=== PATIENT | male | born 1970 | race Caucasian/White ===

== ENCOUNTER → 2021-11-29 15:18 | Outpatient (CLI) | payer OTHER, SELFPAY ==
--- NOTE | ~2021-11-29 | MR_ITS ---
EXAMINATION: MR shoulder LT wo con DATE: 11/29/2021 16:22 INDICATION: Left shoulder pain TECHNIQUE: Magnetic resonance imaging (MRI) of the left shoulder was performed without intravenous co ntrast. Sequences included axial PD-weighted FS FSE, coronal oblique PD-weighted FS FSE, coronal obli que T2-weighted FS FSE, sagittal PD-weighted FS FSE, and sagittal T1-weighted SE. COMPARISON: None. FINDINGS: Coracoacromial arch: The acromion undersurface is curved in morphology (type II). The coracoacromial ligament is normal. M ild acromioclavicular osteoarthritis. Rotator cuff: The supraspinatus, infraspinatus and teres minor tendons are normal. Mild subscapularis tendinopathy with small longitudinal split tear extending approximately 2 cm medially from the lesser tuberosity f ootplate along the otherwise intact appearing tendon fibers. Normal rotator cuff muscle bulk and sign al. Biceps tendon, glenoid labrum and glenohumeral cartilage: Long head of the biceps tendon is normal. Normal variant [place] complex with absent anterosuperior la maykel with thickened cordlike middle glenohumeral ligament. Very small tear at the 11:30-12:00 positio n of the superior glenoid labrum. Glenohumeral cartilage is normal. Fluid: Physiologic amount of fluid in the glenohumeral joint and biceps tendon sheath. No loose osteochondr al bodies. No abnormal fluid signal in the subacromial/subdeltoid bursa to suggest bursitis. Bones/other: Normal marrow signal with no fracture or abnormal marrow replacing process. There is thickened soft t issue replacing the normal fat signal at the rotator cuff interval as well as thickening of the joint capsule at the axillary recess, both findings which can be seen with adhesive capsulitis which is a clinical diagnosis. IMPRESSION: 1. Thickening of the capsule at the axillary recess and thickened soft tissue at the rotator cuff int erval, both findings which can be seen in the setting of adhesive capsulitis which is a clinical diag nosis. 2. Mild subscapularis tendinopathy with longitudinal split tear along the cephalad third of the tendo n. 3. Very small SLAP tear at the superior glenoid labrum. 4. Mild acromioclavicular osteoarthritis. Reviewed, dictated and finalized at location A. IMPRESSION: 1. Thickening of the capsule at the axillary recess and thickened soft tissue a t the rotator cuff interval, both findings which can be seen in the setting of adhesive capsulitis which is a clinical diagnosis. 2. Mild subscapularis tendinopathy with longitudinal split tear along the cepha lad third of the tendon. 3. Very small SLAP tear at the superior glenoid labrum. 4. Mild acromioclavicular osteoarthritis.
== END ==
PROVIDERS: PCP Physician Assistant; Visit Provider Physician Assistant
DX: M19.012 Primary osteoarthritis, left shoulder (principal); S43.432A Superior glenoid labrum lesion of left shoulder, initial encounter; X58.XXXA Exposure to other specified factors, initial encounter
CPT/HCPCS: 73221